=== PATIENT | male | born 1975 | race African-American/Black ===

== ENCOUNTER 2017-08-06 11:07 | Emergency (ER) | payer BC, SELFPAY ==
[2017-08-06 11:43] LABS: #Basophils 0.1 thou/uL (0.0-0.2); #Eosinphils 0.2 thou/uL (0.0-0.7); #Lymphocytes 2.3 thou/uL (1.20-3.40); #Monocytes 0.6 thou/uL (0.11-0.59); #Neutrophils 2.7 thou/uL (1.40-6.50); %Basophils 1.5 % (0.0-1.0); %Eosinophils 2.9 % (0.0-10.0); %Lymphocytes 39.6 % (21.0-51.0); %Monocytes 9.5 % (0.0-10.0); %Neutrophils 46.6 % (42.0-75.0); Hemoglobin 14.6 g/dL (14.0-18.0); Mean Corpuscular HGB CONC 31.6 g/dL (32.0-36.0); Mean Corpuscular Hemoglobin 28.9 pg (27.0-31.0); Mean Corpuscular Volume 91.5 fl (80.0-94.0); Mean Platelet Volume 8.8 fL (7.4-10.4); Platelet Count 245 thou/uL (130-400); RBC Distribution Width 12.8 % (11.5-14.5); Red Blood Cell (RBC) Count 5.04 mill/uL (4.70-6.10); White Blood Cell (WBC) Count 5.8 thou/uL (4.8-10.8)
[2017-08-06 12:04] LABS: ALT (SGPT) 23 U/L (8-55); AST (SGOT) 18 U/L (5-34); Albumin 4.2 g/dL (3.5-5.0); Alkaline Phosphatase 63 U/L (40-150); Anion Gap 13 mmol/L (10-20); BUN (Urea Nitrogen) 8 mg/dL (8.9-20.6); Bilirubin, Total 0.8 mg/dL (0.2-1.2); Calc. Creatinine Clearance 0 mL/min (70-130); Calcium 9.4 mg/dL (7.8-10.44); Carbon Dioxide 26 mmol/L (22-29); Chloride 105 mmol/L (98-107); Estimated GFR-MDRD Greater than 90; Globulin 3.1 g/dL (2.4-3.5); Glucose 102 mg/dL (70-105); Protein, Total 7.3 g/dL (6.0-8.3); Sodium 140 mmol/L (136-145)
[2017-08-06] MEDS ORDERED: Ketorolac Tromethamine 30 MG/ML VIAL ONE (13:18)
[2017-08-06] MEDS ORDERED: traMADol HCl 50 MG TAB ONE (13:18)
== END 2017-08-06 13:35 | disposition home or self-care (01) ==
LOC: ERS 11:07
DX: S39.012A Strain of muscle, fascia and tendon of lower back, initial encounter (principal); M62.830 Muscle spasm of back; E78.5 Hyperlipidemia, unspecified; G43.909 Migraine, unspecified, not intractable, without status migrainosus; F17.210 Nicotine dependence, cigarettes, uncomplicated; X50.1XXA Overexertion from prolonged static or awkward postures, initial encounter
CPT/HCPCS: 36415; 80053; 85025; 96372; J1885

== ENCOUNTER 2018-01-24 10:51 | Outpatient (CLI) | payer BC ==
--- NOTE | 2018-01-24 13:14 | MRI ---
MRI LEFT SHOULDER WITHOUT CONTRAST: INDICATIONS: Left shoulder pain for six months. COMPARISON: None. FINDINGS: There is an intrasubstance tear involving the anterior and mid infraspinatus at the footprint. This involves the majority of the tendon insertion (approximately 75% to 80%) and measures 0.9 x 1.6 cm in greatest mediolateral AP dimension. There is some delamination into the anterior tendon of the infr aspinatus. There is diffuse moderate supraspinatus/infraspinatus tendinosis. There is some mild tendinosis of t he subscapularis. The biceps tendon is located. There is some linear high T2 signal seen within the substance of the supraglenoid labrum on image 13 of series 14 that is posterior to the biceps anchor, suspicious for a type II labral tear. There is suspicion for a tiny paralabral cyst seen on image 14 of series 4, measuring 2 mm. This is also seen on image 14 of series 5. The glenohumeral articular surface is normal appearing. The AC joint demonstrates mild osteoarthrosis. There is a type II acromion. No os acromiale is evid ent. No muscular atrophy is demonstrated. IMPRESSION: 1. High grade intrasubstance tear of the anterior to mid infraspinatus, at the footprint, with some delamination to the anterior aspect of the infraspinatus tendon. No full-thickness tear is evident. 2. Type II superior labrum anterior and posterior tear. 3. Mild acromioclavicular joint osteoarthrosis. POS: [facility]
== END 2018-01-24 10:52 | disposition home or self-care (01) ==
LOC: TBSIIMAG 10:51
PROVIDERS: ATTEND Family Medicine
DX: M25.512 Pain in left shoulder (principal); M19.012 Primary osteoarthritis, left shoulder; S43.52XA Sprain of left acromioclavicular joint, initial encounter

== ENCOUNTER 2018-03-27 07:59 | Outpatient (CLI) | payer OTHER ==
--- NOTE | 2018-03-27 10:45 | MRI ---
MRI LEFT SHOULDER WITHOUT CONTRAST: INDICATIONS: Left shoulder strain. History of reinjuring left shoulder after fall. COMPARISON: Prior exam dated 01/24/2018. FINDINGS: Again seen is a high grade intrasubstance tear of the anterior to mid infraspinatus, at the footprint , with some intratendinous delamination into the anterior aspect of the infraspinatus tendon. No ful l-thickness tear component is evident. There is mild tendinosis of the supraspinatus, infraspinatus and subscapularis, which is similar. The type II SLAP tear appears similar. The glenohumeral articu lar surface is normal appearing. The AC joint demonstrates mild degenerative change. The anterior-i nferior glenohumeral labral ligamentous complex appears within normal limits. The glenohumeral artic ular surface appears within normal limits. No muscular atrophy is evident. No enlarged lymph nodes are noted. IMPRESSION: 1. Persistent high grade intrasubstance tear involving the anterior to mid infraspinatus, at the bryan tprint, with some intratendinous delamination involving the anterior infraspinatus. The extent of th e delamination appears similar to the prior exam. 2. Persistent type II superior labrum anterior and posterior tear. 3. Stable mild acromioclavicular joint osteoarthrosis. 4. Stable tendinosis of the subscapularis, supraspinatus, and infraspinatus. POS: [facility]
== END 2018-03-27 08:00 | disposition home or self-care (01) ==
LOC: TBSIIMAG 07:59
PROVIDERS: ATTEND Family Medicine
DX: M75.112 Incomplete rotator cuff tear or rupture of left shoulder, not specified as traumatic (principal); S43.402D Unspecified sprain of left shoulder joint, subsequent encounter; S43.432A Superior glenoid labrum lesion of left shoulder, initial encounter; S46.812A Strain of other muscles, fascia and tendons at shoulder and upper arm level, left arm, initial encounter; M19.012 Primary osteoarthritis, left shoulder; M75.82 Other shoulder lesions, left shoulder